=== PATIENT | male | born 1970 | race African-American/Black ===

== ENCOUNTER 2021-06-01 08:14 | Observation (INO) | payer OTHER, SELFPAY ==
[2021-06-01] VITALS (26 sets, daily range): BP systolic 134–192; BP diastolic 76–111; PULSE 65–80; RESP 12–30; TEMP 36.3–36.6; O2SAT 96–100; BMI 37.2
--- NOTE | ~2021-06-01 | US_ITS ---
EXAMINATION: US carotid duplex BI DATE: 06/02/2021 10:16 INDICATION: Syncope. TECHNIQUE: Grayscale, color Doppler, and pulsed Doppler images of the cervical carotid arteries were obtained. The degree of vessel stenosis is placed in one of the following categories: normal, <50%, 5 0-69%, >=70% but less than near-occlusion, near-occlusion, or total occlusion. Note that percent sten osis relative to normal distal artery lumen diameter is indirectly measured from velocity measurement s as described by Francisco, et al. Radiology 2003; 229:340-346. COMPARISON: CTA neck 06/01/2021 FINDINGS: RIGHT: The right common carotid artery (CCA) peak systolic velocity (PSV) is 142 cm/s. The right internal ca rotid artery (ICA) PSV is 99 cm/s. The right ICA end-diastolic velocity (EDV) is 8 cm/s. The right IC A/CCA PSV ratio is 0.7. Grayscale and color Doppler images yield an estimate of <50% diameter reducti on from plaque in the ICA. There is antegrade flow in the right vertebral artery. LEFT: The left CCA PSV is 166 cm/s. The left ICA PSV is 97 cm/s. The left ICA EDV is 24 cm/s. The left ICA/ CCA PSV ratio is 0.6. Grayscale and color Doppler images yield an estimate of <50% diameter reduction from plaque in the ICA. There is antegrade flow in the left vertebral artery. IMPRESSION: 1. <50% stenosis in the right internal carotid artery. 2. <50% stenosis in the left internal carotid artery. Reviewed, dictated and finalized at location E. ETIC AGENT
--- NOTE | ~2021-06-01 | CT_ITS ---
EXAMINATION: CTA brain carotid DATE: 06/01/2021 08:33 INDICATION: Aphasia. TECHNIQUE: Computed tomographic angiography (CTA) of the head was performed without and with 100 mL O mnipaque-350 intravenous contrast. CTA of the neck was performed with intravenous contrast. Automated exposure control and iterative reconstruction technique were employed. The dose-length product was 1 991.02 mGy-cm. Maximum intensity projection and volume rendered 3D-reconstructions were created by honorio carrion technologist on a separate workstation. COMPARISON: None. FINDINGS: HEAD CTA: There is no intracranial hemorrhage, acute infarction, or abnormal intracranial mass lesion . The ventricles are normal in size. There are mucous retention cysts in the maxillary sinuses. The m astoid air cells are normal. The orbits are normal. The vertebral arteries are codominant. There is a significant stenosis of basilar artery or the posterior cerebral arteries. There is no significant s tenosis of the intracranial internal carotid arteries or anterior or middle cerebral arteries. Anteri or communicating artery is normal. The posterior communicating arteries are normal. There is no aneur ysm. NECK CTA: There are no pathologically enlarged lymph nodes. There is no significant stenosis of the v ertebral arteries. There is plaque in the proximal internal carotid arteries. There is 0% stenosis of the proximal right internal carotid artery relative to normal distal artery lumen diameter (NASCET c riteria). There is 0% stenosis of the proximal left internal carotid artery relative to normal distal artery lumen diameter. There is moderate cervical spondylosis. IMPRESSION: 1. Normal brain. No aneurysm or significant intracranial arterial stenosis. 2. 0% stenosis of the proximal internal carotid arteries relative to normal distal artery lumen diame ters (NASCET criteria). Reviewed, dictated and finalized at location E. SECURITY COORDINATOR IMPRESSION: 1. Normal brain. No aneurysm or significant intracranial arterial stenosis. 2. 0% stenosis of the proximal internal carotid arteries relative to normal dis cherry artery lumen diameters (NASCET criteria).
--- NOTE | ~2021-06-01 | MR_ITS ---
EXAMINATION: MR lumbar spine wo con DATE: 06/01/2021 14:25 INDICATION: Weakness post fall TECHNIQUE: Magnetic resonance imaging (MRI) of the lumbar spine was performed without intravenous con trast. Sequences included sagittal T2-weighted FSE, sagittal T2-weighted FS FSE, sagittal T1-weighted FSE, and axial T2-weighted FSE. COMPARISON: None FINDINGS: Alignment is normal. Vertebral body heights are normal. Normal marrow signal. Discs are normal with normal height and signal. The conus medullaris terminates at L1-L2. There is normal signal in the cau candelaria spinal cord. Paravertebral soft tissues are unremarkable. The following disc levels are specifica lly discussed: T12-L1: The disc does not extend beyond the endplate margin. There is no facet joint osteoarthritis. There is no neural foraminal stenosis. There is no central canal stenosis. L1-L2: The disc does not extend beyond the endplate margin. There is mild left and minimal right face t joint osteoarthritis. There is no neural foraminal stenosis. There is no central canal stenosis. L2-L3: The disc does not extend beyond the endplate margin. There is mild bilateral facet joint osteo arthritis. There is no neural foraminal stenosis. There is no central canal stenosis. L3-L4: Disc is minimally bulging. There is mild bilateral facet joint osteoarthritis. There is mild b ilateral neural foraminal stenosis. There is no central canal stenosis. L4-L5: Disc is mildly bulging. There is mild left and mild to moderate right facet joint osteoarthrit is. There is mild bilateral neural foraminal stenosis. There is no central canal stenosis. L5-S1: The disc does not extend beyond the endplate margin. There is mild bilateral facet joint osteo arthritis. There is no neural foraminal stenosis. There is no central canal stenosis. IMPRESSION: 1. Minimal to mild lumbar spondylosis. Reviewed, dictated and finalized at location A. ECTOR RUBBER STAMP DIE
--- NOTE | ~2021-06-01 | MR_ITS ---
EXAMINATION: MR thoracic spine wo con EXAM DATE: 06/01/2021 14:25 INDICATION: Weakness. TECHNIQUE: Multi-sequential, multiplanar MR images of the thoracic spine were obtained without contra st. Sagittal T1, T2, T2 fat saturation, axial T2 weighted images reviewed. There is no prior study for comparison. FINDINGS: The vertebral bodies are aligned in the AP dimension. Vertebral body and disc heights are w ell-maintained. The spinal cord signal intensity and intrinsic morphology is normal. There are no corcoran spicious marrow signal abnormalities. Paraspinal soft tissue is unremarkable. IMPRESSION: Unremarkable MR thoracic spine. Reviewed, dictated and finalized at location G. BLEACHER
--- NOTE | ~2021-06-01 | MR_ITS ---
EXAMINATION: MR brain/brain stem wo con DATE: 06/01/2021 14:25 INDICATION: Possible stroke with weakness, bilateral facial droop and aphasia. TECHNIQUE: Magnetic resonance imaging (MRI) of the brain and brainstem was performed without intraven ous contrast. Sequences included sagittal and axial T1-weighted SE, axial diffusion-weighted FS SE, a xial T2*-weighted GRE, axial T2-weighted FLAIR, and axial T2-weighted FSE. Apparent diffusion coeffic ient (ADC) maps were created. COMPARISON: Brain CT/CTA dated 06/01/2021 FINDINGS: There are no areas of restricted diffusion to suggest acute infarction. No intracranial hemorrhage or abnormal intracranial mass lesion. There are no intraparenchymal signal abnormalities seen on the ot her pulse sequences. The ventricles are symmetric and normal in size. There are no abnormal extra-axi al fluid collections. Flow voids are seen in the cerebral arteries on the T2-weighted sequences consi stent with their expected patency. Mild mucosal thickening throughout the paranasal sinuses with more prominent mucous retention cyst at the floor of the right maxillary sinus. Visualized orbits and sof t tissues are unremarkable. IMPRESSION: 1. Normal brain. Reviewed, dictated and finalized at location A. G DEPARTMENT SUPERVISOR IMPRESSION: 1. Normal brain.
--- NOTE | ~2021-06-01 | MR_ITS ---
EXAMINATION: MR cervical spine wo con EXAM DATE: 06/01/2021 14:25 INDICATION: Weakness. Fall. TECHNIQUE: Multi-sequential, multiplanar MR images of the cervical spine were obtained without contra st. Axial T2, axial T2 MERGE sequence. Sagittal T1, T2, T2 fat saturation images also obtained. Th ere is no prior study for comparison. FINDINGS: The spinal cord signal intensity and intrinsic morphology is normal. Cervicomedullary junc tion is normal in appearance. There are no suspicious marrow signal abnormalities. Paraspinal soft ti ssue is unremarkable. The vertebral bodies are aligned in the AP dimension. Mild loss of the C5-6 dis c height. Level by level evaluation: C2-C3: Disc does not extend beyond the endplate margin. Uncovertebral joint arthropathy: None. Facet joint arthropathy: Mild. Neural foraminal stenosis: No stenosis. Central canal stenosis: No stenosis. C3-C4: Disc does not extend beyond the endplate margin. Uncovertebral joint arthropathy: Mild right. Facet joint arthropathy: Mild. Neural foraminal stenosis: No stenosis. Central canal stenosis: No stenosis. C4-C5: Disc does not extend beyond the endplate margin. Uncovertebral joint arthropathy: Mild. Facet joint arthropathy: Mild. Neural foraminal stenosis: No stenosis. Central canal stenosis: No stenosis. C5-C6: Mild to moderate disc bulge asymmetric to the right Uncovertebral joint arthropathy: Mild to moderate left, moderate to severe right. Facet joint arthropathy: Mild bilateral. Neural foraminal stenosis: Moderate to severe right, mild left. Central canal stenosis: Mild. C6-C7: Disc does not extend beyond the endplate margin. Uncovertebral joint arthropathy: Mild bilateral. Facet joint arthropathy: Mild bilateral. Neural foraminal stenosis: Mild right. Central canal stenosis: No stenosis. C7-T1: Disc does not extend beyond the endplate margin. Uncovertebral joint arthropathy: None. Facet joint arthropathy: Mild to moderate bilateral. Neural foraminal stenosis: No stenosis. Central canal stenosis: No stenosis. IMPRESSION: 1. C5-6 moderate to severe right neural foraminal stenosis, mild central canal stenosis. 2. Less spondylosis other levels. Reviewed, dictated and finalized at location G. NG SECTION CHIEF
--- NOTE | 2021-06-01 08:19 | ECG_ITS ---
Measurements Intervals [place] Rate: 74 P: 10 NC: 161 QRS: -20 QRSD: 113 T: 112 QT: 358 QTc: 398 Interpretive Statements SINUS RHYTHM INCOMPLETE RIGHT BUNDLE BRANCH BLOCK DELAYED PRECORDIAL R/S TRANSITION LEFT VENTRICULAR HYPERTROPHY AND ST-T CHANGE MINIMAL Q WAVES- HIGH LATERAL LEADS BASELINE ARTIFACT- II, III, AVR, AVF, V1, V3-V6 BORDERLINE ECG Electronically Signed On 06-01-2021 9:57:09 [employer]Y PLAN DEALER by Gregor Muro D.O.
--- NOTE | 2021-06-01 08:24 | ED.GENADULT ---
HPI - General Adult General Chief complaint: Suspected CVA Stated complaint: CVA symptoms Source: patient and RN notes reviewed History of Present Illness HPI narrative: Patient is a 50 y/o male complaining of generalized weakness when he woke up around 2:40 AM this morning. He states that he was fine when he went to sleep around 8:00 PM last night. He was making breakfast around 7:45 AM and then fell on the floor due to generalized weakness. His call EMS. He states that he still has generalized weakness. His weakness on left side is worse. He states that he had similar episodes before which resolved without treatment. He never sought medical attention for similar episodes previously. Related Data Home Medications Medication Instructions Recorded Confirmed insulin lispro protamin-lispro 60 unit SUBCUT Q12H 06/01/21 06/01/21 [Humalog Mix 75-25 KwikPen] lisinopril-hydrochlorothiazide 1 tablet PO DAILY 06/01/21 06/01/21 Allergies Allergy/AdvReac Type Severity Reaction Status Date / Time tetrahydrozoline AdvReac Severe Other Verified 06/01/21 11:51 [[facility] Review of Systems Constitutional: Constitutional: Denies chills, Denies fever(s), Denies headache(s) and Reports weakness Eyes: Eyes: Denies blurry vision ENT: Denies headache(s) and Denies neck pain Cardiovascular: Cardiovascular: Denies chest pain and Denies dyspnea Respiratory: Respiratory: Denies cough and Denies dyspnea Gastrointestinal: Gastrointestinal: Denies abdominal pain, Denies diarrhea, Reports nausea and Denies vomiting Genitourinary: Genitourinary: Denies hematuria and Denies dysuria Musculoskeletal: Musculoskeletal: Denies back pain and Denies neck pain Neurologic: Denies headache(s) and Reports weakness [facility] Family History Family History (Updated 06/01/21 @ 11:54 by Evie Morgan RN) Mother Cerebrovascular accident Hypertension Father Brain injury Multiple myeloma Cerebrovascular accident Social History Social History Smoking status: Current every day smoker Tobacco type: e-cigarettes/vaping Alcohol intake: never Substance use: current Substance use type: marijuana Last use: 05/31/21 Spiritual care concerns: No Exam Const: General: no acute distress and well developed Orientation/consciousness: oriented to person, oriented to place, oriented to time and patient oriented x3 HENMT: Head: normocephalic Ears: external ears normal General nose exam: Normal external nose present Eyes: General: appearance normal, both eyes and all related structures Conjunctivae: conjunctivae normal Neck: Neck: normal visual inspection and full ROM Chest: Chest palpation & inspection: normal inspection of the chest and no tenderness Resp: Effort & Inspection: normal respiratory effort Auscultation: clear to auscultation bilaterally Cardio: Rate: regular rate Rhythm: regular rhythm GI: GI Palp: No abdominal tenderness and Yes Soft to palpation Skin: General skin exam: normal color and turgor normal Neuro: General: oriented to person, oriented to place, oriented to time and patient oriented x3 Cognition (Neuro): normal cognition Motor exam (neuro): Other motor observations present (weakness in all 4 extremities) Extrem: General: normal to inspection, full ROM and no pedal edema Psych: Appearance: grossly normal Mental Status: mental status grossly normal Affect: normal affect Course Consultations Consultation #1: Discussed with Dr. Castle, who agrees to admit. Date: 06/01/21 Time: 09:37 Consultation #2: Discussed with Dr. Arrieta, who agrees to consult. Date: 06/01/21 Time: 09:59 Vital Signs Vital signs: Vital Signs Pulse Rate 75 06/01/21 08:32 Respiratory Rate 15 06/01/21 08:32 Blood Pressure 192/108 H 06/01/21 08:32 Pulse Oximetry 96 06/01/21 08:32 Temperature 36.4 C 06/01/21 11:40 Pulse Rate 74 06/01/21 12:00
[2021-06-01 08:27] LABS: Estimated Glomerular Filt Rate > 60
[2021-06-01 08:49] LABS: Basophils Percent Auto 0.6 % (0.2-1.2); Eosinophils Absolute Auto 0.1 K/mm3 (0-0.3); Eosinophils Percent Auto 1.8 % (0-4.4); Hematocrit 40.4 % (42.0-52.0); Hemoglobin 13.5 g/dL (14.0-18.0); Immature Granulocyte Absolute 0.01 K/mm3 (0.00-0.031); Immature Granulocyte Percent A 0.2 % (0-0.5); Lymphocytes Absolute Auto 2.02 K/mm3 (0.9-3.2); Lymphocytes Percent Auto 40.3 % (18.3-44.2); Mean Corpuscular HGB Conc 33.4 g/dl (32-36); Mean Corpuscular Hemoglobin 26.6 pg (26-34); Mean Corpuscular Volume 79.7 fl (80-100); Monocytes Absolute Auto 0.4 K/mm3 (0.1-0.6); Neutrophils Absolute Auto 2.5 K/mm3 (1.3-6.7); Neutrophils Percent Auto 49.1 % (45.5-73.1); Platelet Count Result 229 k/mm3 (150-375); Red Blood Count 5.07 M/mm3 (4.6-6.20); Red Cell Distribution Width 14.3 % (11.5-14.5)
[2021-06-01 08:56] LABS: Glucose Point of Care 185 mg/dl (65-105)
[2021-06-01 08:59] LABS: Alanine Aminotransferase 18 U/L (4-50); Albumin Level 3.8 g/dL (3.5-5.1); Alkaline Phosphatase 53 U/L (38-126); Anion Gap 4 mmol/L (8-16); Aspartate Amino Transferase 32 U/L (17-59); Bilirubin,Total 0.4 mg/dL (0.2-1.3); Blood Urea Nitrogen 11 mg/dL (9-20); Calcium 9.2 mg/dL (8.4-10.2); Carbon Dioxide 27 mmol/L (22-30); Chloride 105 mmol/L (98-107); Estimated CRCL calculation 97 ml/min; Estimated Glomerular Filt Rate > 60; Glucose 170 mg/dL (65-110); Partial Thromboplastin Time 27.7 SECONDS (22.3-36.8); Potassium 4.3 mmol/L (3.4-5.0); Prothrombin Time 13.5 Seconds (11.1-14.7); Sodium 136 mmol/L (137-145)
[2021-06-01 09:03] LABS: Add Urine Microscopic? YES; Appearance Urine Clear (Clear); Bilirubin Urine Negative (Negative); Blood Urine Negative (Negative); Color Urine Yellow (Yellow); Glucose Urine UA Negative (Negative); Ketones Urine Negative (Negative); Leukocyte Esterase Ur Negative LEU/UL (Negative); Nitrate Urine Negative (Negative); Protein Urine 3+ mg/dL (Negative); Specific Grav Ur 1.023 (1.001-1.035); Urobilinogen Urine Negative mg/dL (<2.0); WBC Urine 0-3 /hpf
[2021-06-01 10:05] LABS: SARS-CoV-2 RNA PCR Negative
--- NOTE | 2021-06-01 10:43 | PC.NURSE ---
tried to give report but nurse is in a COVID room
--- NOTE | 2021-06-01 11:02 | WPDNEURCNPN ---
Consult date: 06/01/21 HPI: Irvin Benítez is a 50 year old male has been admitted to the hospital through the emergency room for the complaints of generalized weakness when he woke up around 2:40 a.m. in the morning. Reportedly was fine when he went to sleep around 8:00 p.m. last night and he was making breakfast around 7:45 a.m. when he fell on the floor due to generalized weakness called EMS he was still complaining of generalized weakness particularly on the left side he has had a similar episode in the past which resolved without any specific treatment he has not been allergic to any medication , initial examination revealed him to be awake alert oriented x3 with no abnormal finding the general physical examination as well as neuro examination vital signs were stable with blood pressure 167/111 and Stroke Scale of only 1, head neck CTA was done in the emergency room which revealed no evidence of aneurysm or territorial blockage and 0% stenosis of the underlying major blood vessels routine lab studies were normal except blood sugar of 185 and SARS-CoV-2 id negative Review of Systems Review of Systems: All systems reviewed & are unremarkable except as noted in HPI and below Meds Home Medications and Allergies Allergies Allergy/AdvReac Type Severity Reaction Status Date / Time No Known Allergies Allergy Unknown Unverified 01/30/19 16:49 tetrahydrozoline AdvReac Unknown Other Verified 01/30/19 16:49 Vital Signs Vital Signs - 24 hr 06/01/21 08:32 06/01/21 08:34 06/01/21 08:35 Temperature Pulse Rate 75 78 74 Respiratory Rate 15 20 12 Blood Pressure 192/108 H 192/108 H Pulse Oximetry 96 100 98 06/01/21 08:40 06/01/21 08:46 06/01/21 08:47 Temperature 36.4 C Pulse Rate 74 70 69 Respiratory Rate 21 H 24 H 17 Blood Pressure 192/108 H 185/103 H Pulse Oximetry 96 06/01/21 09:00 06/01/21 09:01 06/01/21 09:15 Temperature Pulse Rate 71 68 73 Respiratory Rate 15 13 19 Blood Pressure 177/104 H Pulse Oximetry 98 98 97 06/01/21 09:16 06/01/21 09:30 06/01/21 09:31 Temperature Pulse Rate 77 71 68 Respiratory Rate 27 H 22 H 24 H Blood Pressure 181/110 H 180/106 H Pulse Oximetry 99 100 06/01/21 09:45 06/01/21 09:46 06/01/21 10:00 Temperature Pulse Rate 70 69 69 Respiratory Rate 22 H 16 30 H Blood Pressure 174/103 H Pulse Oximetry 98 06/01/21 10:01 06/01/21 10:15 06/01/21 10:16 Temperature Pulse Rate 65 65 66 Respiratory Rate 26 H 22 H 20 Blood Pressure 148/77 H 167/111 H Pulse Oximetry 98 97 98 Results Labs CBC & Chem 7: 06/01/21 08:42 06/01/21 08:42 Labs: Short CBC 06/01/21 Range/Units 08:42 WBC 5.0 (4.5-10.0) K/mm3 Hgb 13.5 L (14.0-18.0) g/dL Hct 40.4 L (42.0-52.0) % Plt Count 229 (150-375) k/mm3 BMP 06/01/21 06/01/21 08:25 08:42 Sodium 136 L Potassium 4.3 Chloride 105 Carbon Dioxide 27 BUN 11 Creatinine 1.10 1.00 Glucose 170 H Calcium 9.2 Liver Function 06/01/21 Range/Units 08:42 Total Bilirubin 0.4 (0.2-1.3) mg/dL AST 32 (17-59) U/L ALT 18 (4-50) U/L Alkaline Phosphatase 53 (38-126) U/L Albumin 3.8 (3.5-5.1) g/dL Urine 06/01/21 Range/Units 08:42 Urine Color Yellow (Yellow) Urine Appearance Clear (Clear) Urine pH 7.0 (5.0-9.0) Ur Specific [place] 1.023 (1.001-1.035) Urine Protein 3+ H (Negative) mg/dL Urine Glucose (UA) Negative (Negative) mg/dL
--- NOTE | 2021-06-01 11:24 | ADMGEN ---
This patient, Irvin Benítez, was admitted to Medical Room 248-. Patient/family oriented to hospital policies and general routines including ID bracelet, bed and alarms, visiting hours, pain management, procedures, bathroom and other care routines, personal items, smoking policy, room service/diet, and visiting hours. Information on how to activate the Rapid Response Team has been discussed. Patient/Family are encouraged to report perceived risks to care and to ask questions if they do not understand what they are told or what they should do.
[2021-06-01 16:43] LABS: Glucose Point of Care 155 mg/dl (65-105)
--- NOTE | 2021-06-01 19:57 | PM.IMHP ---
H&P: HPI History of Present Illness Date/Time: 06/01/21 19:57 this is a 50-year-old male patient who came in today with complaints of generalized weakness. The patient stated that he has had an episode like this in the past where he just had a moment where his body felt like it was paralyzed and could not move and then he would regain movement. The patient stated that he was fine when he went to sleep at 8:00 a.m. last night. He was making breakfast around 745 this morning when he just automatically found the floor Dews to some generalized weakness. His activated the EMS. He stated that his left side was worse than the right. Patient has never had medical treatment for this in the past when it happened because it has resolved on its own. The patient is diabetic and takes his prescribed insulin. He also has hypertension and he states that he takes. He had head and neck CTA which shows a normal brain and 0% stenosis of proximal internal carotid arteries. MRI of the brain shows a normal brain. Cervical spine MRI was read as the following1. C5-6 moderate to severe right neural foraminal stenosis, mild central canal stenosis. 2. Less spondylosis other levels. Lumbar spine MRI was read as minimal to moderate lumbar spondylosis. Thoracic spine MRI was read as unremarkable MR thoracic spine. I spoke with my collaborative who recommended that the patient be placed on steroids. However the patient is diabetic so will have to monitor his blood sugars closely. The patient is being admitted to observation status on the date of service is 06/01/2021. Chief Complaint: Generalized weakness Review of Systems Review of Systems: All systems reviewed & are unremarkable except as noted in HPI and below Constitutional: Constitutional: Reports as per HPI and Reports no additional constitutional complaints Eyes: Eyes: Reports as per HPI and Reports no additional eye complaints ENT: Reports system reviewed and no additional complaints, except as documented and Reports Normal hearing present Cardiovascular: Cardiovascular: Reports no additional cardiovascular complaints Respiratory: Respiratory: Reports no additional respiratory complaints and Reports no additional respiratory complaints Gastrointestinal: Gastrointestinal: Reports as per HPI and Reports no additional gastrointestinal complaints Musculoskeletal: Musculoskeletal: Reports no additional musculoskeletal complaints Integumentary/Breasts: Skin/Breast: Reports system reviewed and no additional complaints, except as docu and Reports as per HPI Neurologic: Reports system reviewed and no additional complaints, except as documented, Reports as per HPI and Reports Normal hearing present Psychiatric: Psychiatric: Reports no additional psychiatric complaints and Reports as per HPI Endocrine: Endocrine: Reports no additional endocrine complaints Hematologic/Lymphatic: Hematologic/Lymphatic: Reports no additional hematologic/lymphatic complaints Allergic/Immunologic: Allergic/Immunologic: Reports no additional allergic/immunologic complaints PMF Past Medical History Medical History DM2 (diabetes mellitus, type 2) HTN (hypertension) with goal to be determined Iron deficiency anemia Kidney stone Surgical History Surgical History H/O lithotripsy Family History Family History Mother Cerebrovascular accident Hypertension Breast cancer Father Brain injury Multiple myeloma Cerebrovascular accident Social History Social History (Updated 06/01/21 @ 21:15 by Juliana Mendoza NP) Social History: The patient has 1 child a son. He lives with his . The is the durable power personal injury attorney for healthcare. The patient does use E cigarettes and marijuana. 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 Code status
[2021-06-01] MEDS: methylPREDNISolone SOD SUCC 125 MG VIAL IV PUSH (20:35)
[2021-06-01 20:42] LABS: Glucose Point of Care 132 mg/dl (65-105)
[2021-06-02] VITALS (9 sets, daily range): BP systolic 131–160; BP diastolic 67–97; PULSE 75–136; RESP 18–20; TEMP 36.3–36.5; O2SAT 99–100
--- NOTE | 2021-06-02 | ECHO_ITS ---
Patient Info Name: Irvin Benítez Age: 50 years : 1970 Gender: Male Ht: 68 in Wt: 244 lbs BSA: 2.35 m2 HR: 94 bpm BP: 160 / 97 mmHg Technical Quality: Fair Exam Date: 06/02/2021 10:28 AM Exam Location: [facility] Exam Room: 248 Patient Status: Inpatient Admit Date: 06/01/2021 Staff Ordering Physician: Michi Renee [employer]ric[employer] Specialist: Shannan Pink RDCS Attending Provider: Rosalie Castle MD Referring Physician: Víctor HUANG; Exam Type: CA echo dop color flow w con Study Info Indications - weakness syncope Complete two-dimensional, color flow and Doppler transthoracic echocardiogram is performed with contrast to opacify the left ventricle and to improve the deliniation of the left ventricle endocardial borders. Contrast/Agitated Saline Contrast/Ag. Saline: Definity Amount: 2.00 ml Existing IV Access: Yes Summary 1. Left ventricular chamber dimension is normal. 2. Ventricular septum is sigmoid shaped. No LVOT obstruction. 3. Definity contrast administered improved wall motion interpretation. 4. Left ventricular systolic function is hyperdynamic, estimated at >70%. 5. There is moderate asymmetric septal increased left ventricular wall thickness. 6. The left ventricular diastolic function is grade I diastolic dysfunction. 7. E/e' 9 is minimally elevated. 8. No pulmonary hypertension, estimated pulmonary arterial systolic pressure is 32 mmHg. Left Ventricle Definity contrast administered improved wall motion interpretation. E/e' 9 is minimally elevated. Ventricular septum is sigmoid shaped. No LVOT obstruction. Left ventricular chamber dimension is normal. Left ventricular systolic function is hyperdynamic, estimated at >70%. There is moderate asymmetric septal increased left ventricular wall thickness. The left ventricular diastolic function is grade I diastolic dysfunction. Right Ventricle Right ventricular chamber dimension is normal. Right ventricular systolic function is normal. Left Atria Left atrial chamber dimension is normal. Right Atria Right atrial chamber dimension is normal. Aortic Valve The aortic valve is trileaflet. There is no aortic valve stenosis. There is no aortic valve regurgitation. Pulmonic Valve There is no pulmonic regurgitation. Mitral Valve There is no mitral valve stenosis. There is no mitral valve regurgitation. Tricuspid Valve There is no tricuspid valve regurgitation. No pulmonary hypertension, estimated pulmonary arterial systolic pressure is 32 mmHg. Pericardium/Pleural There is no pericardial effusion. Inferior Vena Cava Normal inferior vena cava with >50% collapse upon inspiration consistent with normal right atrial pressure, 5 mmHg. Aorta The aortic root size at the sinus of Valsalva is normal. Left Ventricular Outflow Tract Name Value Normal LVOT 2D LVOT Diameter 2.07 cm LVOT Doppler LVOT Peak Gradient 7 mmHg LVOT Mean Gradient 4 mmHg LVOT VTI 22.32 cm LVOT VTI
[2021-06-02] MEDS: methylPREDNISolone SOD SUCC 125 MG VIAL 60 MG IV PUSH (04:57)
[2021-06-02 05:39] LABS: Basophils Percent Auto 0.1 % (0.2-1.2); Hematocrit 45.7 % (42.0-52.0); Immature Granulocyte Absolute 0.02 K/mm3 (0.00-0.031); Immature Granulocyte Percent A 0.3 % (0-0.5); Lymphocytes Absolute Auto 0.64 K/mm3 (0.9-3.2); Mean Corpuscular HGB Conc 32.8 g/dl (32-36); Mean Corpuscular Hemoglobin 26.5 pg (26-34); Mean Corpuscular Volume 80.6 fl (80-100); Mean Platelet Volume 9.3 fl (7.4-10.4); Monocytes Percent Auto 0.4 % (2.6-8.5); Neutrophils Absolute Auto 6.4 K/mm3 (1.3-6.7); Neutrophils Percent Auto 90.2 % (45.5-73.1); Platelet Count Result 239 k/mm3 (150-375); Red Blood Count 5.67 M/mm3 (4.6-6.20); Red Cell Distribution Width 13.8 % (11.5-14.5); White Blood Count 7.1 K/mm3 (4.5-10.0)
[2021-06-02 05:48] LABS: Lactic Acid Reflex 1.1 mmol/L (0.7-2.1)
[2021-06-02 05:49] LABS: Alanine Aminotransferase 22 U/L (4-50); Albumin Level 4.5 g/dL (3.5-5.1); Alkaline Phosphatase 58 U/L (38-126); Anion Gap 6 mmol/L (8-16); Aspartate Amino Transferase 31 U/L (17-59); Bilirubin,Total 0.5 mg/dL (0.2-1.3); Blood Urea Nitrogen 12 mg/dL (9-20); Calcium 9.7 mg/dL (8.4-10.2); Carbon Dioxide 25 mmol/L (22-30); Chloride 108 mmol/L (98-107); Estimated CRCL calculation 105 ml/min; Estimated Glomerular Filt Rate > 60; Glucose 177 mg/dL (65-110); Lactate Dehydrogenase 494 U/L (313-618); Lipase 58 U/L (23-300); Magnesium 1.8 mg/dL (1.6-2.3); Potassium 4.1 mmol/L (3.4-5.0); Sodium 139 mmol/L (137-145)
[2021-06-02 06:39] LABS: Thyroid Stimulating Hormone Reflex 0.762 uIU/mL (0.465-4.68)
[2021-06-02 07:43] LABS: Glucose Point of Care 204 mg/dl (65-105)
--- NOTE | 2021-06-02 07:45 | P.PNIM_ITS ---
Progress Note: A&P Assessment and Plan (1) Weakness: Code(s): R53.1 - Weakness Status: Acute Assessment and Plan: * Cervical spine MRI C5-6 moderate to severe right neural foraminal stenosis, mild central canal stenosis. * Thoracis and lumbar spine showed Minimal to mild lumbar spondylosis * Head and neck CTA Normal brain. No aneurysm or significant intracranial arterial stenosis, 0% stenosis of the proximal internal carotid arteries relative to normal distal artery lumen diameters * Brain MRI Normal brain * No reports of loss of bowel or bladder * generalized weakness noted * Neurology consulted thank you for your help * Acetylcholine receptor lab is pending * Methylprednisone 60mg IV q8hr, Decreased to 40 mg IV Q 12 * neurosurgeon outpatient follow up indicated * PT and OT (2) DM2 (diabetes mellitus, type 2): Code(s): E11.9 - Type 2 diabetes mellitus without complications Status: Chronic Assessment and Plan: * Glucose 177 * Accu-Cheks AC and HS * Sliding scale insulin * continue home 75/25 60units Q12hr * Trend labs * Adjust medications as indicated (3) Hypertension: Qualifiers: Hypertension type: unspecified Qualified Code(s): I10 - Essential (primary) hypertension Code(s): I10 - Essential (primary) hypertension Status: Acute Assessment and Plan: * Current BP is 160/97 * Continue with home Lisinopril and hydrochlorothiazide * monitor renal function * Trend BP * Adjust therapy as indicated (4) Syncope and collapse: Code(s): R55 - Syncope and collapse Status: Acute Assessment and Plan: * Brain MRI showed normal brain * head CT showed normal brain and 0% stenosis * carotid Dopplers are pending * echo is pending * blood pressure does appear to be relatively high 160/97 * blood pressure medication should probably be adjusted however I am going to wait just she would looks like this afternoon after gets his medications. Time Spent With Patient Time with patient: Greater than 35 minutes Subjective Date/time seen: 06/02/21 07:45 Interval history: Date/Time: 06/01/21 19:57 This is a 50-year-old male patient who came in today with complaints of generalized weakness. The patient stated that he has had an episode like this in the past where he just had a moment where his body felt like it was paralyzed and could not move and then he would regain movement. The patient stated that he was fine when he went to sleep at 8:00 a.m. last night. He was making breakfast around 745 this morning when he just automatically found the floor Dews to some generalized weakness. His activated the EMS. He stated that his left side was worse than the right. Patient has never had medical treatment for this in the past when it happened because it has resolved on its own. The patient is diabetic and takes his prescribed insulin. He also has hypertension and he states that he takes. He had head and neck CTA which shows a normal brain and 0% stenosis of proximal internal carotid arteries. MRI of the brain shows a normal brain. Cervical spine MRI was read as the following1. C5-6 moderate to severe right neural foraminal stenosis, mild central canal stenosis. 2. Less spondylosis other levels. Lumbar spine MRI was read as minimal to moderate lumbar spondylosis. Thoracic spine MRI was read as unremarkable MR t horacic spine. I spoke with my collaborative who recommended that the patient be placed on steroids. However the patient is diabetic so will have to briana
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
[2021-06-02] MEDS: INSULIN ASPART (*BKC) 100 UNITS/ML SUB-Q ×2 (07:50→11:50)
[2021-06-02] MEDS: hydroCHLOROthiazide 25 MG TABLET PO (07:52)
[2021-06-02] MEDS: lisinopriL 20 MG TABLET PO (07:52)
[2021-06-02] MEDS: ACETAMINOPHEN 500 MG TABLET 1000 MG PO (08:24)
[2021-06-02] MEDS: PERFLUTREN LIPID MICROSPHERES 1.5 ML VIAL DILUTED TO 10 ML TOTAL VOLUME IV PUSH (11:06)
--- NOTE | 2021-06-02 11:07 | IVDEFINITY ---
Prior to administration of IV Definity the patient was educated on the risks and benefits of the imaging enhancing agent including potential adverse side effects. The patient verbalized understanding. Allergies were verified. No exclusion criteria were identified and at least one of the following inclusion criteria were met: 1) physician request, 2) patient technically difficult to image (per the [place] [employer] guidelines of two or more segments not discernable within the apical view), or 3) questionable left ventricular function. ?
[2021-06-02 11:49] LABS: Glucose Point of Care 221 mg/dl (65-105)
[2021-06-02 16:41] LABS: Glucose Point of Care 168 mg/dl (65-105)
[2021-06-02] MEDS: methylPREDNISolone SOD SUCC 40 MG VIAL IV PUSH (16:56)
[2021-06-02 20:59] LABS: Glucose Point of Care 145 mg/dl (65-105)
[2021-06-03] VITALS (9 sets, daily range): BP systolic 122–149; BP diastolic 59–87; PULSE 74–80; RESP 14–20; TEMP 36.5–36.8; O2SAT 96–100
[2021-06-03] MEDS: methylPREDNISolone SOD SUCC 40 MG VIAL IV PUSH (05:03)
[2021-06-03 06:15] LABS: Basophils Percent Auto 0.1 % (0.2-1.2); Hematocrit 44.6 % (42.0-52.0); Hemoglobin 14.6 g/dL (14.0-18.0); Immature Granulocyte Absolute 0.04 K/mm3 (0.00-0.031); Immature Granulocyte Percent A 0.4 % (0-0.5); Lymphocytes Absolute Auto 1.18 K/mm3 (0.9-3.2); Lymphocytes Percent Auto 10.9 % (18.3-44.2); Mean Corpuscular HGB Conc 32.7 g/dl (32-36); Mean Corpuscular Hemoglobin 26.3 pg (26-34); Mean Corpuscular Volume 80.2 fl (80-100); Mean Platelet Volume 9.4 fl (7.4-10.4); Monocytes Absolute Auto 0.8 K/mm3 (0.1-0.6); Monocytes Percent Auto 7.1 % (2.6-8.5); Neutrophils Absolute Auto 8.8 K/mm3 (1.3-6.7); Neutrophils Percent Auto 81.5 % (45.5-73.1); Platelet Count Result 283 k/mm3 (150-375); Red Blood Count 5.56 M/mm3 (4.6-6.20); Red Cell Distribution Width 13.9 % (11.5-14.5); White Blood Count 10.8 K/mm3 (4.5-10.0)
[2021-06-03 06:19] LABS: Alanine Aminotransferase 19 U/L (4-50); Albumin Level 4.3 g/dL (3.5-5.1); Alkaline Phosphatase 50 U/L (38-126); Anion Gap 7 mmol/L (8-16); Aspartate Amino Transferase 27 U/L (17-59); Bilirubin,Total 0.3 mg/dL (0.2-1.3); Blood Urea Nitrogen 21 mg/dL (9-20); Calcium 9.3 mg/dL (8.4-10.2); Carbon Dioxide 25 mmol/L (22-30); Chloride 105 mmol/L (98-107); Estimated CRCL calculation 87 ml/min; Estimated Glomerular Filt Rate > 60; Glucose 117 mg/dL (65-110); Magnesium 2.1 mg/dL (1.6-2.3); Potassium 3.7 mmol/L (3.4-5.0); Sodium 137 mmol/L (137-145)
[2021-06-03 07:40] LABS: Glucose Point of Care 136 mg/dl (65-105)
[2021-06-03] MEDS: lisinopriL 20 MG TABLET PO (08:00)
[2021-06-03] MEDS: hydroCHLOROthiazide 25 MG TABLET PO (08:00)
--- NOTE | 2021-06-03 09:47 | P.PNIM_ITS ---
Progress Note: A&P Assessment and Plan (1) Weakness: Code(s): R53.1 - Weakness Status: Acute Assessment and Plan: * Cervical spine MRI C5-6 moderate to severe right neural foraminal stenosis, mild central canal stenosis. * Thoracis and lumbar spine showed Minimal to mild lumbar spondylosis * Head and neck CTA Normal brain. No aneurysm or significant intracranial arterial stenosis, 0% stenosis of the proximal internal carotid arteries relative to normal distal artery lumen diameters * Brain MRI Normal brain * No reports of loss of bowel or bladder * generalized weakness noted * Neurology consulted thank you for your help * Acetylcholine receptor lab is pending * Methylprednisone 60mg IV q8hr, Decreased to 40 mg IV Q 12 * neurosurgeon outpatient follow up indicated * PT and OT (2) DM2 (diabetes mellitus, type 2): Code(s): E11.9 - Type 2 diabetes mellitus without complications Status: Chronic Assessment and Plan: * Glucose 177 * Accu-Cheks AC and HS * Sliding scale insulin * continue home 75/25 60units Q12hr * Trend labs * Adjust medications as indicated (3) Hypertension: Qualifiers: Hypertension type: unspecified Qualified Code(s): I10 - Essential (primary) hypertension Code(s): I10 - Essential (primary) hypertension Status: Acute Assessment and Plan: * Current BP is 160/97 * Continue with home Lisinopril and hydrochlorothiazide * monitor renal function * Trend BP * Adjust therapy as indicated (4) Syncope and collapse: Code(s): R55 - Syncope and collapse Status: Acute Assessment and Plan: * Brain MRI showed normal brain * head CT showed normal brain and 0% stenosis * carotid Dopplers are pending * ECHO showed: Left Ventricular septum is sigmoid shaped. No LVOT obstruction.Left ventricular systolic function is hyperdynamic, estimated at >70%.Moderate asymmetric septal increased left ventricular wall thickness. Left ventricular diastolic function is grade I diastolic dysfunction.No pulmonary HTN. * blood pressure does appear to be relatively high 160/97 * blood pressure medication should probably be adjusted however I am going to wait just she would looks like this afternoon after gets his medications. Subjective Date/time seen: 06/03/21 09:47 Interval history: Date/Time: 06/01/21 19:57 This is a 50-year-old male patient who came in today with complaints of gene ralized weakness. The patient stated that he has had an episode like this in the past where he just had a moment where his body felt like it was paralyzed and could not move and then he would regain movement. The patient stated that he was fine when he went to sleep at 8:00 a.m. last night. He was making breakfast around 745 this morning when he just automatically found the floor Dews to some generalized weakness. His activated the EMS. He stated that his left side was worse than the right. Patient has never had medical treatment for this in the past when it happened because it has resolved on its own. The patient is diabetic and takes his prescribed insulin. He also has hypertension and he states that he takes. He had head and neck CTA which shows a normal brain and 0% stenosis of proximal internal carotid arteries. MRI of the brain shows a normal brain. Cervical spine MRI was read as the following1. C5-6 moderate to severe right neural foraminal stenosis, mild central canal stenosis. 2. Less spondylosis other levels. Lumbar spine MRI was read as minimal to moder
--- NOTE | 2021-06-03 09:47 | PM.IMPN ---
Progress Note: A&P Assessment and Plan (1) Weakness: Code(s): R53.1 - Weakness Status: Acute Assessment and Plan: Cervical spine MRI C5-6 moderate to severe right neural foraminal stenosis, mild central canal stenosis. Thoracis and lumbar spine showed Minimal to mild lumbar spondylosis Head and neck CTA Normal brain. No aneurysm or significant intracranial arterial stenosis, 0% stenosis of the proximal internal carotid arteries relative to normal distal artery lumen diameters Brain MRI Normal brain No reports of loss of bowel or bladder generalized weakness noted Neurology consulted thank you for your help Acetylcholine receptor lab is pending Methylprednisone 60mg IV q8hr, Decreased to 40 mg IV Q 12 neurosurgeon outpatient follow up indicated PT and OT (2) DM2 (diabetes mellitus, type 2): Code(s): E11.9 - Type 2 diabetes mellitus without complications Status: Chronic Assessment and Plan: Glucose 177 Accu-Cheks AC and HS Sliding scale insulin continue home 75/25 60units Q12hr Trend labs Adjust medications as indicated (3) Hypertension: Qualifiers: Hypertension type: unspecified Qualified Code(s): I10 - Essential (primary) hypertension Code(s): I10 - Essential (primary) hypertension Status: Acute Assessment and Plan: Current BP is 160/97 Continue with home Lisinopril and hydrochlorothiazide monitor renal function Trend BP Adjust therapy as indicated (4) Syncope and collapse: Code(s): R55 - Syncope and collapse Status: Acute Assessment and Plan: Brain MRI showed normal brain head CT showed normal brain and 0% stenosis carotid Dopplers are pending ECHO showed: Left Ventricular septum is sigmoid shaped. No LVOT obstruction.Left ventricular systolic function is hyperdynamic, estimated at >70%.Moderate asymmetric septal increased left ventricular wall thickness. Left ventricular diastolic function is grade I diastolic dysfunction.No pulmonary HTN. blood pressure does appear to be relatively high 160/97 blood pressure medication should probably be adjusted however I am going to wait just she would looks like this afternoon after gets his medications. Subjective Date/time seen: 06/03/21 09:47 Interval history: Date/Time: 06/01/21 19:57 This is a 50-year-old male patient who came in today with complaints of generalized weakness. The patient stated that he has had an episode like this in the past where he just had a moment where his body felt like it was paralyzed and could not move and then he would regain movement. The patient stated that he was fine when he went to sleep at 8:00 a.m. last night. He was making breakfast around 745 this morning when he just automatically found the floor Dews to some generalized weakness. His activated the EMS. He stated that his left side was worse than the right. Patient has never had medical treatment for this in the past when it happened because it has resolved on its own. The patient is diabetic and takes his prescribed insulin. He also has hypertension and he states that he takes. He had head and neck CTA which shows a normal brain and 0% stenosis of proximal internal carotid arteries. MRI of the brain shows a normal brain. Cervical spine MRI was read as the following1. C5-6 moderate to severe right neural foraminal stenosis, mild central canal stenosis. 2. Less spondylosis other levels. Lumbar spine MRI was read as minimal to moderate lumbar spondylosis. Thoracic spine MRI was read as unremarkable MR thoracic spine. I spoke with my collaborative who recommended that the patient be placed on steroids. However the patient is diabetic so will have to monitor his blood sugars closely. Date/Time 06/02/21 [id number] Patient is sitting on side of the bed eating his breakfast. Patient is ready to go and stated he is feeling a lot better. Shelia
--- NOTE | 2021-06-03 11:00 | WPDNEURCNPN ---
Assessment and Plan Additional Plan 1. Generalized weakness with underlying diabetes mellitus 2. His screen for myasthenia gravis results are pending 3. Spondylosis 4. Diabetes mellitus. Considering all the studies at this particular time are unrewarding to the acute intervention he will be followed in the office in 3 months also particularly for the results of the acetylcholine receptor antibodies for myasthenia gravis Consult date: 06/03/21 HPI: Irvin Benítez is a 50 year old male admitted to the hospital for the complaints of generalized weakness and with the information that in the past he has had a moment where his body felt like it was paralyzed and he could not move and then he regained the movements in the morning when he woke up he felt weak all over he was he was weaker on the left side compared to the right side he is known diabetic and has been on insulin on initial evaluation in the emergency room he had a CTA of the head and neck which was negative for the stenosis or aneurysm MRI of the brain was normal MRI of the cervical spine revealed mild central canal stenosis and lumbar spine MRI was also with moderate lumbar spondylosis but the thoracic MRI was negative, patient was admitted with a diagnosis of type 2 diabetes mellitus, hypertension, iron deficiency anemia, and history of renal stone, in addition to the this particular fall and weakness evaluation documented mild leukocytosis negative SARS-CoV-2 it, acetyl choline receptor antibodies pending, Doppler study of the carotid negative MRI of the thoracic spine negative MRI of the lumbar spine consistent with the arthritic changes but MRI of cervical spine consistent with moderate to severe right-sided neural foraminal stenosis only with mild central canal stenosis and brain MRI negative Review of Systems Review of Systems: All systems reviewed & are unremarkable except as noted in HPI and below PMFSH Past Medical History Medical History DM2 (diabetes mellitus, type 2) HTN (hypertension) with goal to be determined Iron deficiency anemia Kidney stone Surgical History Surgical History H/O lithotripsy Family History Family History Mother Cerebrovascular accident Hypertension Breast cancer Father Brain injury Multiple myeloma Cerebrovascular accident Social History Social History Social History: The patient has 1 child a son. He lives with his . The is the durable power criminal attorney for healthcare. The patient does use E cigarettes and marijuana. 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 Code status full code Smoking status: Current every day smoker Tobacco type: e-cigarettes/vaping Alcohol intake: never Substance use: current Substance use type: marijuana Last use: 05/31/21 Spiritual care concerns: No Meds Home Medications and Allergies Home Medications Medication Instructions Recorded Confirmed Type insulin lispro protamin-lispro 60 unit SUBCUT Q12H 06/01/21 06/01/21 History [Humalog Mix 75-25 KwikPen] lisinopril-hydrochlorothiazide 1 tablet PO DAILY 06/01/21 06/01/21 History Allergies Allergy/AdvReac Type Severity Reaction Status Date / Time tetrahydrozoline AdvReac Severe Other Verified 06/01/21 11:51 [From Visine] Vital Signs Vital Signs - 24 hr 06/02/21 12:00 06/02/21 13:58 06/02/21 16:00 Temperature 36.3 C L Pulse Rate 103 H 93 95 Respiratory Rate 18 Blood Pressure 147/91 H Pulse Oximetry 99 06/02/21 20:00 06/02/21 20:37 06/03/21 00:00 Temperature 36.5 C Pulse Rate 77 83 74 Respiratory Rate 18 18 Blood Pressure 131/67 Pulse Oximetry 99 99 06/03/21 01:19 06/03/21 01:25 06/03/21 03:06 Temperature 36.6 C 36.8 C Pulse Rate 80 77 Respiratory Rate 20 20 Blood Pr
[2021-06-03 11:46] LABS: Glucose Point of Care 146 mg/dl (65-105)
--- NOTE | 2021-06-03 13:06 | P.DS_ITS ---
DS: Admitting Diagnosis Discharge Date 06/03/2021 Admitting Diagnosis Syncope and collapse, weakness, DM, HTN DS: Discharge Diagnosis Discharge Diagnosis (1) Weakness: Code(s): R53.1 - Weakness Status: Acute Assessment and Plan: * Cervical spine MRI C5-6 moderate to severe right neural foraminal stenosis, mild central canal stenosis. * Thoracis and lumbar spine showed Minimal to mild lumbar spondylosis * Head and neck CTA Normal brain. No aneurysm or significant intracranial arterial stenosis, 0% stenosis of the proximal internal carotid arteries relative to normal distal artery lumen diameters * Brain MRI Normal brain * No reports of loss of bowel or bladder * generalized weakness noted at admission, but improved * Neurology consulted, and concerned for myasthenia gravis, screen for myasthenia gravis results are pending * Acetylcholine receptor lab is pending * Methylprednisone 60mg IV q8hr, Decreased to 40 mg IV Q 12, decreased to 40mg Q dAILY. * neuroOLOGIST outpatient follow up indicated AT DISCHARGE with follow up in 1-3 months. * PT and OT evaluations (2) DM2 (diabetes mellitus, type 2): Code(s): E11.9 - Type 2 diabetes mellitus without complications Status: Chronic Assessment and Plan: * Glucose 136 * Accu-Cheks AC and HS * Sliding scale insulin * continue home 75/25 60units Q12hr * F/U with PCP for further control and A1C monitoring (3) Hypertension: Qualifiers: Hypertension type: unspecified Qualified Code(s): I10 - Essential (primary) hypertension Code(s): I10 - Essential (primary) hypertension Status: Acute Assessment and Plan: * Current BP is 123/73, controlled. * Continue with home Lisinopril and hydrochlorothiazide * F/U with PCP (4) Syncope and collapse: Code(s): R55 - Syncope and collapse Status: Acute Assessment and Plan: * Brain MRI showed normal brain * head CT showed normal brain and 0% stenosis * carotid Dopplers are WNL * ECHO showed: Left Ventricular septum is sigmoid shaped. No LVOT obstruction.Left ventricular systolic function is hyperdynamic, estimated at >70%.Moderate asymmetric septal increased left ventricular wall thickness. Left ventricular diastolic function is grade I diastolic dysfunction.No pulmonary HTN. * blood pressure was high 160/97 at admission, but now 123/73 controlled on home meds. * blood pressure improved after he got his medications. DS: Summary Hospital Course Hospital Course: Patient admitted due to syncope and collapse, neurologist eval uation completed and patient started on IV steroids. Weakness has improved. PT/OT evaluations completed. Myasthenia gravis lab work remains pending. Patient feeling much better today and wants discharged today. Patient will follow-up with neurologist. Time Spent with Patient Time attestation: Total time spent providing and/or coordinating discharge services:60 minutes Exam Const: General: cooperative, healthy appearing, comfortable, no acute distress, well developed, alert, awake and Physically active Nutritional Appearance: average body habitus and well nourished Orien tation/consciousness: oriented to person, oriented to place, oriented to time and patient oriented x3 Limitations: no limitations HENMT: Head: normal to inspection, No palpable skull fracture present, normocephalic and atraumatic Ears: hearing grossly normal bilaterally and external ears normal General nose exam: Normal external nose present Eyes: General: appearance normal,
--- NOTE | 2021-06-03 13:06 | PM.DS ---
DS: Admitting Diagnosis Discharge Date 06/03/2021 Admitting Diagnosis Syncope and collapse, weakness, DM, HTN DS: Discharge Diagnosis Discharge Diagnosis (1) Weakness: Code(s): R53.1 - Weakness Status: Acute Assessment and Plan: Cervical spine MRI C5-6 moderate to severe right neural foraminal stenosis, mild central canal stenosis. Thoracis and lumbar spine showed Minimal to mild lumbar spondylosis Head and neck CTA Normal brain. No aneurysm or significant intracranial arterial stenosis, 0% stenosis of the proximal internal carotid arteries relative to normal distal artery lumen diameters Brain MRI Normal brain No reports of loss of bowel or bladder generalized weakness noted at admission, but improved Neurology consulted, and concerned for myasthenia gravis, screen for myasthenia gravis results are pending Acetylcholine receptor lab is pending Methylprednisone 60mg IV q8hr, Decreased to 40 mg IV Q 12, decreased to 40mg Q dAILY. neuroOLOGIST outpatient follow up indicated AT DISCHARGE with follow up in 1-3 months. PT and OT evaluations (2) DM2 (diabetes mellitus, type 2): Code(s): E11.9 - Type 2 diabetes mellitus without complications Status: Chronic Assessment and Plan: Glucose 136 Accu-Cheks AC and HS Sliding scale insulin continue home 75/25 60units Q12hr F/U with PCP for further control and A1C monitoring (3) Hypertension: Qualifiers: Hypertension type: unspecified Qualified Code(s): I10 - Essential (primary) hypertension Code(s): I10 - Essential (primary) hypertension Status: Acute Assessment and Plan: Current BP is 123/73, controlled. Continue with home Lisinopril and hydrochlorothiazide F/U with PCP (4) Syncope and collapse: Code(s): R55 - Syncope and collapse Status: Acute Assessment and Plan: Brain MRI showed normal brain head CT showed normal brain and 0% stenosis carotid Dopplers are WNL ECHO showed: Left Ventricular septum is sigmoid shaped. No LVOT obstruction.Left ventricular systolic function is hyperdynamic, estimated at >70%.Moderate asymmetric septal increased left ventricular wall thickness. Left ventricular diastolic function is grade I diastolic dysfunction.No pulmonary HTN. blood pressure was high 160/97 at admission, but now 123/73 controlled on home meds. blood pressure improved after he got his medications. DS: Summary Hospital Course Hospital Course: Patient admitted due to syncope and collapse, neurologist evaluation completed and patient started on IV steroids. Weakness has improved. PT/OT evaluations completed. Myasthenia gravis lab work remains pending. Patient feeling much better today and wants discharged today. Patient will follow-up with neurologist. Time Spent with Patient Time attestation: Total time spent providing and/or coordinating discharge services:60 minutes Exam Const: General: cooperative, healthy appearing, comfortable, no acute distress, well developed, alert, awake and Physically active Nutritional Appearance: average body habitus and well nourished Orientation/consciousness: oriented to person, oriented to place, oriented to time and patient oriented x3 Limitations: no limitations HENMT: Head: normal to inspection, No palpable skull fracture present, normocephalic and atraumatic Ears: hearing grossly normal bilaterally and external ears normal General nose exam: Normal external nose present Eyes: General: appearance normal, both eyes and all related structures Visual Rangel: normal visual rangel by confrontation Alignment and Position: alignment normal Periorbital: periorbital findings normal Eyelids: eyelids normal Conjunctivae: conjunctivae normal Sclera: sclerae normal Cornea: corneas normal Pupils: Equal, round and reactive pupils present EOM: EOMs intact bilaterally Neck: Neck: normal visual inspection and full ROM Thyroid: thyroid norm
[2021-06-07 22:08] LABS: Acetylchol Receptor Binding Ab <0.30 nmol/L
== END 2021-06-03 16:31 | disposition home or self-care (01) ==
LOC: ANHED 10:32 → ANH2MED 10:37
PROVIDERS: Nurse Practitioner; Admitting Provider Family Medicine; Emergency Provider Emergency Medicine; PCP Internal Medicine; Visit Provider Nurse Practitioner
DX: R53.1 Weakness (principal); R55 Syncope and collapse; I10 Essential (primary) hypertension; E11.9 Type 2 diabetes mellitus without complications; D50.9 Iron deficiency anemia, unspecified; M48.02 Spinal stenosis, cervical region; M47.816 Spondylosis without myelopathy or radiculopathy, lumbar region; F17.290 Nicotine dependence, other tobacco product, uncomplicated; Z79.4 Long term (current) use of insulin; Z87.442 Personal history of urinary calculi; Z20.822 Contact with and (suspected) exposure to COVID-19
CPT/HCPCS: 36415; 51701; 70496; 70498; 70551; 72141; 72146; 72148; 80053; 81001; 82728; 82948; 83605; 83615; 83690; 83735; 84238; 84443; 85025; 85610; 85730; 93005; 93880; 96374; 96375; 96376; 97161; 97165; 99285; A9270; C8929; C9803; G0378; J1815; J2920; J2930; Q9957; Q9967; U0003; U0005

== ENCOUNTER 2024-01-05 11:26 | Outpatient (CLI) | payer BC, SELFPAY ==
--- NOTE | ~2024-01-05 | XR_ITS ---
XR shoulder RT min 2V DATE: 01/05/2024 12:00 INDICATION: Bilateral shoulder pain TECHNIQUE: 4 views COMPARISON: None FINDINGS: No fracture, dislocation, periosteal reaction or bone destruction. Normal alignment at the currently clavicular and glenohumeral joint spaces. No significant joint space narrowing. No abnormal soft tissue calcification. IMPRESSION: Negative Reviewed, dictated and finalized at location A. IMPRESSION: Negative
--- NOTE | ~2024-01-05 | XR_ITS ---
XR shoulder LT min 2V DATE: 01/05/2024 12:00 INDICATION: Bilateral shoulder pain TECHNIQUE: 4 views COMPARISON: None FINDINGS: No fracture, dislocation, periosteal reaction or bone destruction. Normal alignment and pre servation of joint spaces at the acromioclavicular and glenohumeral joints. No abnormal soft tissue c alcification. IMPRESSION: Negative Reviewed, dictated and finalized at location A. IMPRESSION: Negative
--- NOTE | ~2024-01-05 | XR_ITS ---
XR cervical spine 4-5V DATE: 01/05/2024 12:00 INDICATION: Bilateral neck pain with C6-7 radiculopathy TECHNIQUE: AP, open-mouth, lateral and bilateral oblique views COMPARISON: 06/01/2021 MR cervical spine FINDINGS: C1 and C2 are normally aligned and the odontoid process is intact. No fracture or dislocati on or locked facet or prevertebral soft tissue swelling. There is minimal anterolisthesis at C4-5. There is moderately severe degenerative disc disease at C5-6. There is uncovertebral joint spurring b ilaterally at C5-6. Suboptimal positioning of the oblique views, with limited demonstration of the neural foramina. IMPRESSION: Moderately severe degenerative disease and bilateral uncovertebral joint spurring at C5-6 Minimal anterolisthesis at C4-5 No fracture or dislocation or locked facet or prevertebral soft tissue swelling Reviewed, dictated and finalized at location A.
--- NOTE | ~2024-01-05 | XR_ITS ---
XR thoracic spine 2V DATE: 01/05/2024 12:00 INDICATION: Bilateral mid back pain TECHNIQUE: AP, lateral views COMPARISON: 01/05/2024 cervical spine including swimmer view FINDINGS: No fracture or dislocation or bone destruction of the thoracic spine is evident. The thorac ic pedicles are intact. There is mild degenerative spurring of the thoracic spine. No paraspinal soft tissue thickening. IMPRESSION: Mild degenerative spurring of the thoracic spine Reviewed, dictated and finalized at location A.
== END 2024-01-05 11:27 | disposition home or self-care (01) ==
PROVIDERS: PCP Chiropractor; Visit Provider Chiropractor
DX: M54.6 Pain in thoracic spine (principal); M25.511 Pain in right shoulder; M25.512 Pain in left shoulder; M50.322 Other cervical disc degeneration at C5-C6 level
CPT/HCPCS: 72050; 72070; 73030